=== PATIENT | female | born 1985 | race African-American/Black ===

== ENCOUNTER → 2020-05-23 | Outpatient (CLI) | payer BC ==
[2020-05-23 16:21] LABS: CREATININE 0.8 mg/dL (0.6-1.0); GFR 98.2
== END | disposition home or self-care (01) ==
LOC: LAB 15:25
PROVIDERS: ATTEND Psychiatry & Neurology Neurology
DX: G35 Multiple sclerosis (principal)
CPT/HCPCS: 36415; 82565; 84520